=== PATIENT | female | born 1980 | race Caucasian/White ===

== ENCOUNTER 2018-04-26 19:35 | Emergency (ER) | payer MEDICAID ==
[~2018-04-26] VITALS: Ht 152.4 cm; Wt 93.0 kg
[~2018-04-26 19:35] MED LIST: ATEN50TA8 PO
[2018-04-26 19:39] VITALS: BP 152/105
--- NOTE | 2018-04-26 19:42 | NUR ---
PT TAKEN TO BED 8
[2018-04-26] MEDS ORDERED: ASPI81CT89 PO (19:49)
--- NOTE | 2018-04-26 19:51 | NUR ---
EKG PERFORMED AT BEDSIDE. PT COVERED IN GOWN DURING PROCEDURE
[2018-04-26] MEDS ORDERED: KETOROLAC 30 MG/ML VIAL IM ONE (20:45)
[2018-04-26] MEDS ORDERED: DIAZEPAM 5 MG TAB PO ONE (20:45)
--- NOTE | 2018-04-26 20:51 | NUR ---
X-Ray at bedside.
[2018-04-26 21:20] LABS: BASOPHILS % (AUTO) 0.6 % (0.0-2.0); EOSINOPHILS % (AUTO) 0.9 % (0.0-4.0); HEMATOCRIT 41.8 % (36-48); HEMOGLOBIN 13.7 g/dL (12.0-16.0); LYMPHOCYTES # (AUTO) 2.1 K/uL (2.5-16.5); LYMPHOCYTES % (AUTO) 45.3 % (20.5-51.1); MEAN CORPUSCULAR HEMOGLOBIN 28 pg (27-31); MEAN CORPUSCULAR HGB CONC 33 g/dL (33-37); MEAN CORPUSCULAR VOLUME 84.1 fL (80-94); MONOCYTES # (AUTO) 0.5 K/uL (0.8-1.0); MONOCYTES % (AUTO) 9.9 % (1.7-9.3); NEUTROPHILS % (AUTO) 43.3 % (42.2-75.2); PLATELET COUNT (AUTO) 205 K/uL (140-450); RED BLOOD CELL COUNT(AUTO) 4.97 MIL/uL (4.20-5.40); WHITE BLOOD COUNT (AUTO) 4.6 K/uL (4.8-10.8)
[2018-04-26 21:26] LABS: ANION GAP 9.3 (8-16); CARBON DIOXIDE 27.2 mmol/L (21-32); CREATININE 0.7 mg/dL (0.6-1.3); POTASSIUM 3.5 mmol/L (3.5-5.1)
[2018-04-26 21:39] LABS: CREATINE KINASE MB 2.8 ng/mL (0-3.6)
--- NOTE | 2018-04-26 21:50 | NUR ---
ALL RESULTS BACK AND NOTED BY ERMD AND FOR D/C.
[2018-04-26 22:08] VITALS: BP 134/85
--- NOTE | 2018-04-26 22:08 | NUR ---
Patient discharged with v/s stable. Written and verbal after care instructions given and explained. Patient alert, oriented and verbalized understanding of instructions. Ambulatory with steady gait. All questions addressed prior to discharge. ID band removed. Patient advised to follow up with PMD. Rx of naprosyn 500mg, valium 5 mg given. Patient educated on indication of medication including possible reaction and side effects. Opportunity to ask questions provided and answered.
== END 2018-04-26 22:08 | disposition home or self-care (01) ==
LOC: MED 19:35
DX: M62.830 Muscle spasm of back (principal); R07.89 Other chest pain; I10 Essential (primary) hypertension; Z86.73 Personal history of transient ischemic attack (TIA), and cerebral infarction without residual deficits; Z79.82 Long term (current) use of aspirin; Z79.899 Other long term (current) drug therapy
CPT/HCPCS: 36415; 71045; 80053; 81025; 82550; 82553; 83690; 84484; 85025; 93005; 96372; 99284; J1885; Q0092